=== PATIENT | male | born 1995 | race Caucasian/White ===

== ENCOUNTER 2017-04-29 12:46 | Emergency (ER) | payer OTHER ==
[~2017-04-29] VITALS: Ht 167.6 cm; Wt 64.3 kg
[2017-04-29 13:01] VITALS: TEMP 37.3; Ht 167.6 cm; Wt 64.3 kg
[2017-04-29] MEDS ORDERED: OPTIRAY 320 IV PRN (13:30)
--- NOTE | 2017-04-29 13:36 | EMERGENCY ROOM VISIT NOTE ---
History First contact with patient: 13:04 Chief Complaint: VOMITING Stated Complaint: SORE THROAT,FEELING OF LUMP IN THROAT,VOMITING Nursing Triage Summary: pt reports sore throat X 2 weeks has been on 2 diffirent abx my throat is still sore. pt report I vomit often in the AM History of Present Illness The patient is a 22 year old male who presents to the Emergency Room with complaints of persistent sore throat/difficulty swallowing 3-4 weeks. The patient reports that initially, he noticed that his throat was "scratchy." He was seen by [facility] and prescribed amoxicillin for presumed strep pharyngitis. The patient completed this antibiotic and did have some GI side effects of vomiting, mostly in the morning. He went back to [facility] because his symptoms had persisted and he felt there was increased swelling in the back of the throat. He was prescribed doxycycline and prednisone. He finished these and states that he was still symptomatic. He was seen at a different urgent care clinic 3 days ago and prescribed Augmentin which he has been taking since then. The patient reports he feels swelling in the right side of his throat and has noticed lumps in the back of the throat. He has had persistent vomiting, often in the morning. He also has an increased amount of phlegm in the back of the throat, which is also worse in the morning. He feels it is difficult for him to swallow. He denies any headaches, neck pain/ stiffness, abdominal pain, diarrhea, fevers or weight loss. Review of Systems A complete 10 point review of systems was reviewed with the patient with pertinent positives and negatives as per history of present illness. All else were negative. Past Medical/Surgical History Medical Problems: (1) No significant past medical history Surgical Problems: (1) No significant past surgical history Social History Smoking Status: Current Every Day Smoker Current/Historical Medications Scheduled Amoxicillin & Pot Clavulanate (Augmentin 875-125 mg), 1 TAB PO BID Physical Exam Vital Signs Date Time Temp Pulse Resp B/P (MAP) Pulse Ox O2 Delivery O2 Flow Rate FiO2 04/29/17 14:55 78 18 111/77 99 Room Air 04/29/17 13:01 37.3 73 20 129/85 98 Room Air Physical Exam VITALS: Vitals are noted on the nurse's note and reviewed by myself. Vital signs stable. GENERAL: This is a 22-year-old male, in no acute distress, nondiaphoretic, well- developed well-nourished. SKIN: The skin was without rashes. EARS: External auditory canals clear, tympanic membranes pearly anderson without erythema or effusion bilaterally. EYES: Pupils equal round and reactive to light and accommodation. NOSE: Patent, turbinates without inflammation or discharge. MOUTH: Mucous membranes moist. Tonsils are not enlarged. Pharynx without erythema or exudate. Uvula midline. Airway patent. NECK: Supple without nuchal rigidity. No lymphadenopathy. HEART: Regular rate and rhythm without murmurs gallops or rubs. LUNGS: Clear to auscultation bilaterally without wheezes, rales or rhonchi. No retractions or accessory muscle use. ABDOMEN: Soft, nontender to palpation. NEURO: Patient was alert and oriented to person place and time. Medical Decision & Procedures ER Provider Diagnostic Interpretation: SOFT TISSUE NECK WITH CLINICAL HISTORY: right sided throat pain, difficulty swallowing x wks dysphagia TECHNIQUE: Transaxial acquisition. Multiple axial reformatted images. COMPARISON STUDY: None FINDINGS: Major salivary glands are considered unremarkable. The parotid and submandibular glands are symmetric. Sternocleidomastoid musculature is symmetric. The hypopharyngeal airway is widely patent. The epiglottis is normal. Peritonsillar regions are considered unremarkable. Glottic and subglottic regions are within normal limits. Thyroid is symmetric. No evidence for airway narrowing. Several small cervical nodes bilaterally with no evidence for a dominant lymph node or bulky adenopathy. Pulmonary apices are considered clear. IMPRESSION: Negative study Laboratory Results 04/29/17 13:25 Red Blood Count 5.23, Mean Corpuscular Volume 80.7, Mean Corpuscular Hemoglobin 29.4, Mean Corpuscular Hemoglobin Concent 36.5, Mean Platelet Volume 8.7, Neutrophils (%) (Auto) 73.6, Lymphocytes (%) (Auto) 18.0, Monocytes (%) (Auto) 7.4, Eosinophils (%) (Auto) 0.7, Basophils (%) (Auto) 0.0, Neutrophils # (Auto) 5.19, Lymphocytes # (Auto) 1.27, Monocytes # (Auto) 0.52, Eosinophils # (Auto) 0.05, Basophils # (Auto) 0.00 04/29/17 13:25 Test 04/29/17 13:25 White Blood Count 7.05 K/uL (4.8-10.8) Red Blood Count 5.23 M/uL (4.7-6.1) Hemoglobin 15.4 g/dL (14.0-18.0) Hematocrit 42.2 % (42-52) Mean Corpuscular Volume 80.7 fL (80-100) Mean Corpuscular Hemoglobin 29.4 pg (25-34) Mean Corpuscular Hemoglobin Concent 36.5 g/dl (32-36) Platelet Count 476 K/uL (130-400) Mean Platelet Volume 8.7 fL (7.4-10.4) Neutrophils (%) (Auto) 73.6 % Lymphocytes (%) (Auto) 18.0 % Monocytes (%) (Auto) 7.4 % Eosinophils (%) (Auto) 0.7 % Basophils (%) (Auto) 0.0 % Neutrophils # (Auto) 5.19 K/uL (1.4-6.5) Lymphocytes # (Auto) 1.27 K/uL (1.2-3.4) Monocytes # (Auto) 0.52 K/uL (0.11-0.59) Eosinophils # (Auto) 0.05 K/uL (0-0.5) Basophils # (Auto) 0.00 K/uL (0-0.2) RDW Standard Deviation 37.7 fL (36.4-46.3) RDW Coefficient of Variation 12.8 % (11.5-14.5) Immature Granulocyte % (Auto) 0.3 % Immature Granulocyte # (Auto) 0.02 K/uL (0.00-0.02) Anion Gap 6.0 mmol/L (3-11) Est Creatinine Clear Calc Drug Dose 136.3 ml/min Estimated GFR () 149.0 Estimated GFR (Non- 128.6 BUN/Creatinine Ratio 7.3 (10-20) Calcium Level 9.4 mg/dl (8.5-10.1) Total Bilirubin 0.4 mg/dl (0.2-1) Aspartate Amino Transf (AST/SGOT) 11 U/L (15-37) Alanine Aminotransferase (ALT/SGPT) 19 U/L (12-78) Alkaline Phosphatase 49 U/L (45-117) Total Protein 8.1 gm/dl (6.4-8.2) Albumin 4.4 gm/dl (3.4-5.0) Globulin 3.7 gm/dl (2.5-4.0) Albumin/Globulin Ratio 1.2 (0.9-2) Monoscreen NEG (NEG) ED Course The patient was evaluated as above. Labs were drawn and IV access was obtained. CT of the neck soft tissue was performed and read by radiology as above. Patient was reevaluated and [] []Discharge instructions were reviewed with the patient. The patient verbalized understanding of my assessment and treatment plan and was discharged home in good condition. []Case was discussed with the [] hospitalist, []. They agreed to evaluate the patient for admission. Medical Decision Differential diagnosis includes strep pharyngitis, mononucleosis, retropharyngeal abscess, peritonsillar abscess, mass/malignancy, among others. The patient is a 22-year-old male who presents today complaining of persistent throat pain/difficulty swallowing. Exam is unremarkable and patient describes the pain and swelling to be lower in his throat. He has taken 3 antibiotics without improvement of symptoms. Labs revealed no leukocytosis, anemia or concerning electrolyte abnormality. Monospot was negative. Exam is unremarkable. Due to patient's complaint of persistent swelling/difficulty swallowing, I did choose to perform a CT of the neck to rule out mass or retropharyngeal abscess. This was interpreted by radiology and was negative. Patient was informed of these findings and given information for ENT follow-up. He may have a component of GERD and was instructed to start a medication such as Prilosec. Based on the patient's presentation and work up, I feel the patient is stable for outpatient treatment. The patient was educated to return to the emergency department for any worsening of their current condition or new/concerning symptoms. He will follow up with ENT. Medication Reconcilliation Current Medication List: was personally reviewed by me Blood Pressure Screening Patient's blood pressure: Normal blood pressure Impression Primary Impression: Throat pain Departure Information Dispostion Home / Self-Care Condition GOOD Referrals No Doctor, Assigned (PCP) Sung Gillette MD Patient Instructions [facility] Additional Instructions For pain control, you can use the following [id number] medicines (if >12 yo): - Regular strength (325mg/tab) Tylenol (acetaminophen) 2 tabs every 4-6 hours as needed. Do not exceed 12 tablets in a 24 hour period. Avoid taking more than 4 grams (4000 mg) of Tylenol per day. This includes any other sources of acetaminophen you may take on a regular basis. - Regular strength (200 mg/tab) Advil (ibuprofen) 1-2 tabs every 4-6 hours as needed. Do not exceed a dose of 3200 mg per day. You may consider taking a medication such as Prilosec which is [id number] for acid reflux. Follow-up with ENT if you have persistent symptoms. Return here with difficulty swallowing, difficulty breathing, or any other new/ concerning symptoms.
[2017-04-29 13:57] LABS: EOS % 0.7 %; EOS ABS # 0.05 K/uL (0-0.5); HEMATOCRIT 42.2 % (42-52); HEMOGLOBIN 15.4 g/dL (14.0-18.0); IG# 0.02 K/uL (0.00-0.02); LYMPH ABS # 1.27 K/uL (1.2-3.4); MEAN CELL VOLUME 80.7 fL (80-100); MEAN CORPUSCULAR HEMOGLOBIN 29.4 pg (25-34); MEAN CORPUSCULAR HGB CONC 36.5 g/dl (32-36); MEAN PLATELET VOLUME 8.7 fL (7.4-10.4); MONO % 7.4 %; MONO ABS # 0.52 K/uL (0.11-0.59); NEUT % 73.6 %; NEUT ABS # 5.19 K/uL (1.4-6.5); PLATELET COUNT 476 K/uL (130-400); RED CELL DISTRIBUTION WIDTH CV 12.8 % (11.5-14.5); RED CELL DISTRIBUTION WIDTH SD 37.7 fL (36.4-46.3); WHITE BLOOD COUNT 7.05 K/uL (4.8-10.8)
[2017-04-29 14:14] LABS: ALBUMIN 4.4 gm/dl (3.4-5.0); CALCIUM 9.4 mg/dl (8.5-10.1); CREATININE 0.76 mg/dl (0.60-1.40); POTASSIUM 3.7 mmol/L (3.5-5.1)
[2017-04-29] MEDS ORDERED: AMOX875T PO (14:15)
[2017-04-29 14:17] LABS: TOTAL PROTEIN 8.1 gm/dl (6.4-8.2)
--- NOTE | 2017-04-29 14:45 | DIAGNOSTIC IMAGING REPORT ---
SOFT TISSUE NECK WITH CLINICAL HISTORY: right sided throat pain, difficulty swallowing x wks dysphagia TECHNIQUE: Transaxial acquisition. Multiple axial reformatted images. COMPARISON STUDY: None FINDINGS: Major salivary glands are considered unremarkable. The parotid and submandibular glands are symmetric. Sternocleidomastoid musculature is symmetric. The hypopharyngeal airway is widely patent. The epiglottis is normal. Peritonsillar regions are considered unremarkable. Glottic and subglottic regions are within normal limits. Thyroid is symmetric. No evidence for airway narrowing. Several small cervical nodes bilaterally with no evidence for a dominant lymph node or bulky adenopathy. Pulmonary apices are considered clear. IMPRESSION: Negative study The above report was generated using voice recognition software. It may contain grammatical, syntax or spelling errors. Electronically signed by: Shay Mathew M.D. 04/29/2017 2:44 PM Dictated Date/Time: 04/29/2017 2:41 PM
[2017-04-29 14:55] VITALS: BP 111/77; PULSE 78; O2SAT 99
== END 2017-04-29 15:25 | disposition home or self-care (01) ==
LOC: C.EDB 12:48
DX: R07.0 Pain in throat (principal); R22.0 Localized swelling, mass and lump, head; R11.10 Vomiting, unspecified; F17.200 Nicotine dependence, unspecified, uncomplicated

== ENCOUNTER → 2017-06-11 | Day surgery (SDC) | payer OTHER ==
[2017-06-01 15:29] VITALS: Ht 165.1 cm; Wt 67.7 kg
[~2017-06-11] VITALS: Ht 165.1 cm; Wt 67.7 kg
[~2017-06-11] MED LIST: LIDOCAINE HCL 2% 2 ML VIAL (20MG/ML) ONE; MIDAZOLAM HCL 1 MG/ML 2ML VIAL ONE; MISCCAP80 PO; MULTTAB58 PO; PRLSR20 PO; PROPOFOL IV EMULSION 10 MG/ML 20 ML VIAL IV ONE; SODIUM CHLORIDE 0.9% 500ML 500 ML IV ONE
--- NOTE | 2017-06-11 14:02 | Endo History and Physical ---
History & Physical Date of Service: Jun 11, 2017. Chief Complaint: THROAT TIGHTNESS, NAUSEA, VOMITING Referring Physician: JORGE JOHNSON History of Present Illness 22 yo CM who presents for EGD secondary to nausea, vomiting and throat tightness. Past Surgical History Hx Cardiac Surgery: No Hx Internal Defibrillator: No Hx Pacemaker: No Hx Abdominal Surgery: No Hx of Implantable Prosthesis: No Hx Cancer Surgery: No Hx Thoracic Surgery: No Hx Orthopedic: No Hx Urinary Tract Surgery: No Family History None Social History Smoking Status: Current Every Day Smoker Hx Substance Use: Yes (MARIJUANA OCCASIONALY) Hx Alcohol Use: Yes (RARELY) Allergies Coded Allergies: No Known Allergies (Unverified , 06/11/17) Current Medications Reported Home Medications Medications Dose Route/Sig Max Daily Dose Days Date Category Dose Instructions Probiotic (Probiotic Product) 1 Cap Cap 1 Cap PO DAILY PRN 06/01/17 Reported TAKES "EVERY ONCE IN A WHILE" Multivitamin (Multiple Vitamin) 1 Tab Tab 1 Tab PO DAILY 06/01/17 Reported Prilosec (Omeprazole) 20 Mg Capcr 20 Mg PO BID 06/01/17 Reported Vital Signs Weight (Kilograms): 67.73 Height (Feet): 5 Height (Inches): 5 Date Time Temp Pulse Resp B/P (MAP) Pulse Ox O2 Delivery O2 Flow Rate FiO2 06/11/17 13:15 36.8 89 18 131/74 (93) 95 Room Air Physical Exam General Appearance: WD/WN, no apparent distress Respiratory/Chest: Auscultation: breath sounds normal Cardiovascular: Heart Auscultation: RRR Abdomen: Bowel Sounds: normal Inspection & Palpation: soft, non-distended, no tenderness, guarding & rebound Assessment and Plan Assessment: 22 yo CM who presents for EGD secondary to nausea, vomiting and throat tightness. Plan: Proceed with EGD.
--- NOTE | 2017-06-11 14:24 | Discharge Instructions ---
Endoscopy Patient Instructions Date / Procedure(s) Performed Jun 11, 2017. EGD Allergy Information Coded Allergies: No Known Allergies (Unverified , 06/11/17) Discharge Date / Findings Jun 11, 2017. Duodenal biopsies Gastric antrum biopsies Hiatal hernia Medication Instructions OK to resume all medications today as prescribed Reported Home Medications Medications Dose Route/Sig Max Daily Dose Days Date Category Dose Instructions Probiotic (Probiotic Product) 1 Cap Cap 1 Cap PO DAILY PRN 06/01/17 Reported TAKES "EVERY ONCE IN A WHILE" Multivitamin (Multiple Vitamin) 1 Tab Tab 1 Tab PO DAILY 06/01/17 Reported Prilosec (Omeprazole) 20 Mg Capcr 20 Mg PO BID 06/01/17 Reported Provider Instructions Activity Restrictions - No exercising or heavy lifting for 24 hours. - Do not drink alcohol the day of the procedure. - Do not drive a car or operate machinery until the day after the procedure. - Do not make any important decisions or sign important papers in 24 hours after the procedure. Following Day: - Return to full activity which may include returning to work/school. Diet Start your diet with liquids and light foods (jello, soup, juice, toast). Then eat your usual diet if not nauseated. Treatment For Common After Affects For mild abdominal pain, bloating, or excessive gas: - Rest - Eat lightly - Lie on right side Follow-Up Information Follow-up with JORGE JOHNSON as scheduled Anesthesia Information What You Should Know You have had a procedure that required some medicine to reduce anxiety and discomfort. This treatment is called moderate sedation. After receiving the treatment, you may be sleepy, but you will be able to breathe on your own. The effects of the treatment may last for several hours. Follow these instructions along with Activity/Diet recommendations noted above: * Do NOT do anything where dizziness or clumsiness would be dangerous. * Rest quietly at home today, then you can be up and about tomorrow. * Have a responsible person stay with you the rest of today. * You may have had an I.V. today. If so, you may take the dressing off later today. Recommendations Call your doctor if: * Trouble breathing * Continuous vomiting for more than 24 hours * Temperature above 101 degrees * Severe abdominal pain or bloating * Pain not relieved by pain medicine ordered * There is increased drainage or redness from any incision * A large amount of rectal bleeding greater than 2-3 tablespoons. (If you had a polyp/s removed or have hemorrhoids, a small amount of blood - from the rectum is to be expected.) * You have any unanswered questions or concerns. IN THE EVENT OF A SERIOUS EMERGENCY, GO TO THE NEAREST EMERGENCY ROOM Your discharge instructions were prepared by provider Heber Sousa. Patient Instructions Signature Page Louie Bo Patient (or Guardian) Signature/Date: I have read and understand the instructions given to me by my caregivers. Caregiver/RN/Doctor Signature/Date: The above-named patient and/or guardian has received patient instructions on this date. + Original Patient Signature Page (only) stays with chart. Please make copy for patient.
--- NOTE | 2017-06-11 14:29 | GI REPORT ---
Procedure Date: 06/11/2017 1:31 PM Procedure: Upper GI endoscopy Indications: Epigastric abdominal pain, Nausea with vomiting Medicines: Monitored Anesthesia Care Complications: No immediate complications. Estimated Blood Loss: Estimated blood loss: none. Procedure: Pre-Anesthesia Assessment: - Prior to the procedure, a History and Physical was performed, and patient medications and allergies were reviewed. The patient's tolerance of previous anesthesia was also reviewed. The risks and benefits of the procedure and the sedation options and risks were discussed with the patient. All questions were answered, and informed consent was obtained. Prior Anticoagulants: The patient has taken no previous anticoagulant or antiplatelet agents. ASA Grade Assessment: II - A patient with mild systemic disease. After reviewing the risks and benefits, the patient was deemed in satisfactory condition to undergo the procedure. After obtaining informed consent, the endoscope was passed under direct vision. Throughout the procedure, the patient's blood pressure, pulse, and oxygen saturations were monitored continuously. The scope was introduced through the mouth, and advanced to the second part of duodenum. The upper GI endoscopy was accomplished without difficulty. The patient tolerated the procedure well. Findings: The esophagus was normal. A small hiatal hernia was present. Biopsies were taken with a cold forceps in the gastric antrum for Helicobacter pylori testing. The examined duodenum was normal. Biopsies for histology were taken with a cold forceps for evaluation of celiac disease. Impression: - Normal esophagus. - Small hiatal hernia. - Normal examined duodenum. Biopsied. - Biopsies were taken with a cold forceps for Helicobacter pylori testing. Recommendation: - Resume previous diet. - Continue present medications. - Await pathology results. - Return to primary care physician as previously scheduled. Heber Sousa DO 06/11/2017 2:29:02 PM This report has been signed electronically. Note Initiated On: 06/11/2017 1:31 PM I attest to the content of the Intraoperative Record and orders documented therein, exceptions below
--- NOTE | 2017-06-11 14:40 | Anesthesiology Progress Note ---
Anesthesia Post Op Note Date & Time Jun 11, 2017 at 14:40 Vital Signs Pain Intensity: 0 Vital Signs Past 12 Hours Date Time Temp Pulse Resp B/P (MAP) Pulse Ox O2 Delivery O2 Flow Rate FiO2 06/11/17 14:33 71 18 111/75 (87) 98 Room Air 06/11/17 14:23 75 18 93/51 (65) 98 Room Air 06/11/17 13:15 36.8 89 18 131/74 (93) 95 Room Air Notes Mental Status: alert / awake / arousable, participated in evaluation Pt Amnestic to Procedure: Yes Nausea / Vomiting: adequately controlled Pain: adequately controlled Airway Patency, RR, SpO2: stable & adequate BP & HR: stable & adequate Hydration State: stable & adequate Anesthetic Complications: no major complications apparent
[2017-06-11 14:43] VITALS: BP 125/81; PULSE 72; O2SAT 98
== END | disposition home or self-care (01) ==
LOC: C.GI 12:52
PROVIDERS: ATTEND Internal Medicine
DX: K29.50 Unspecified chronic gastritis without bleeding (principal); K44.9 Diaphragmatic hernia without obstruction or gangrene; K21.9 Gastro-esophageal reflux disease without esophagitis; F12.90 Cannabis use, unspecified, uncomplicated; F17.200 Nicotine dependence, unspecified, uncomplicated; Z79.899 Other long term (current) drug therapy

== ENCOUNTER 2017-06-24 10:58 | Emergency (ER) | payer OTHER ==
[~2017-06-24] VITALS: Ht 165.1 cm; Wt 62.4 kg
[~2017-06-24 10:58] MED LIST changes: -LIDOCAINE HCL 2% 2 ML VIAL (20MG/ML) ONE; -MIDAZOLAM HCL 1 MG/ML 2ML VIAL ONE; -PROPOFOL IV EMULSION 10 MG/ML 20 ML VIAL IV ONE; -SODIUM CHLORIDE 0.9% 500ML 500 ML IV ONE
[2017-06-24 11:01] VITALS: TEMP 36.7; Ht 165.1 cm; Wt 62.4 kg
[2017-06-24] MEDS ORDERED: ONDA4TAB10 SL (11:36)
--- NOTE | 2017-06-24 11:38 | EMERGENCY ROOM VISIT NOTE ---
History Report prepared by Imitaz: David Gabriel Under the Supervision of: Dr. Abdullahi Scott M.D. First contact with patient: 11:09 Chief Complaint: ILLNESS Stated Complaint: SWOLLEN TONSILS,GI ISSUSES, VOMITING&DIARRHEA History of Present Illness The patient is a 22 year old male who presents to the Emergency Room with complaints of a waxing and waning sorethroat that he has been experiencing since the beginning of March. The patient has been worked up for this sorethroat and has had a negative strep test. He states that he would like to be evaluated again, to make sure there was not a false-negative test. He also notes persistent nausea and vomiting. He is currently being evaluated by gastroenterology for these symptoms, and had an endoscopy last week. The patient does smoke marijuana commonly, but notes that he has not smoked for several days. Source of History: patient Onset: Beginning of March Position: throat Quality: other (Sorethroat) Timing: waxes/wanes Associated Symptoms: + nausea, + vomiting Review of Systems See HPI for pertinent positives and negatives. A total of ten systems were reviewed and were otherwise negative. Past Medical & Surgical Medical Problems: (1) No significant past medical history Surgical Problems: (1) No significant past surgical history Family History Diabetes mellitus Heart disease Hypertension Social History Smoking Status: Current Every Day Smoker Marital Status: single Housing Status: lives with roommate Occupation Status: [employer] student Current/Historical Medications Scheduled Omeprazole (Prilosec), 20 MG PO BID Allergies Coded Allergies: No Known Allergies (Unverified , 06/24/17) Physical Exam Vital Signs Date Time Temp Pulse Resp B/P (MAP) Pulse Ox O2 Delivery O2 Flow Rate FiO2 06/24/17 11:50 99 14 120/69 99 06/24/17 11:01 36.7 110 18 121/72 95 Room Air Physical Exam GENERAL: Awake, alert, well-appearing, in no distress HENT: Normocephalic, atraumatic. There is mild injection in the posterior oropharynx, no exudates. Marginally enlarged tonsils. EYES: Normal conjunctiva. Sclera non-icteric. NECK: Supple. No nuchal rigidity. FROM. No JVD. There is mild submandibular lymphadenopathy. Non-tender, and mobile. RESPIRATORY: Clear to auscultation. CARDIAC: Regular rate, normal rhythm. Extremities warm and well perfused. Pulses equal. ABDOMEN: Soft, non-distended. No tenderness to palpation. No rebound or guarding. No masses. RECTAL: Deferred. MUSCULOSKELETAL: Chest examination reveals no tenderness. The back is symmetrical on inspection without obvious abnormality. There is no CVA tenderness to palpation. No joint edema. LOWER EXTREMITIES: Calves are equal size bilaterally and non-tender. No edema. No discoloration. NEURO: Normal sensorium. No sensory or motor deficits noted. SKIN: No rash or jaundice noted. Medical Decision & Procedures ED Course 1115: The patient was evaluated in room A3. A complete history and physical exam was performed. 1131: After significant discussion with the patient at bedside, he expresses understand and agreement with the treatment plan. The patient will be discharged home. Medical Decision I reviewed the patient's past medical history, medications, and the nursing notes as described above. Differential diagnosis: Etiologies such as viral syndrome, tonsillitis, streptococcal pharyngitis, mononucleosis, peritonsillar abscess, retropharyngeal abscess, otitis, pneumonia , influenza, as well as others were entertained. The patient is a 22-year-old gentleman who presents emergency department with interim and sore throat over the past several weeks in the setting of chronic nausea being evaluated by gastroenterology with a recent endoscopy 2 weeks ago per hpi. Of note, the patient comes to ED today to see if he can get checked again for strep concerned that may be there was a false positive on his past testing. He also reports that he was tested for mono and this was negative. Otherwise the patient is well-appearing, no acute distress afebrile stable vital signs. On exam the patient has scant posterior pharyngeal injection but no significant edema or exudates. Marginally enlarged tonsils. Mild submandibular lymphadenopathy that is mobile and nontender. Rapid strep performed was negative. Otherwise given the patient is well-appearing and otherwise healthy no indication for further workup at this time. We discussed the option of adding Pepcid to his current omeprazole however we agreed to defer additional changes per his GI appointment tomorrow. Of note, we did discuss that the patient previously had regular alcohol use and daily cannabis use reports that he has discontinued this after his conversations with his GI specialist. While he notes some improvement after this change his symptoms to still continue. Findings and plan for follow-up reviewed with patient. Patient agreeable and d/c'd per discharge instructions. Medication Reconcilliation Current Medication List: was personally reviewed by me Blood Pressure Screening Patient's blood pressure: Normal blood pressure Impression Primary Impression: Sore throat Additional Impression: Nausea & vomiting Scribe Attestation The scribe's documentation has been prepared under my direction and personally reviewed by me in its entirety. I confirm that the note above accurately reflects all work, treatment, procedures, and medical decision making performed by me. Departure Information Dispostion Home / Self-Care Referrals No Doctor, Assigned (PCP) Patient Instructions ED Nausea Vomiting, [facility], Sore Throat Additional Instructions Please follow up with [facility] in the next 1-3 days and well as with gastroenterology tomorrow as scheduled for re-evaluation. The cause of your symptoms is unclear at this time and may be related to your chronic nausea and vomiting or possible a viral illness. Otherwise, your exam did not show signs of an emergent condition at this time. Acetaminophen or ibuprofen for pain and fevers as needed. Zofran as needed for nausea. Drink plenty of fluids to ensure hydration. Continue to refrain from alcohol and marijuana use. Return to the emergency department for worsening symptoms as described in the accompanying instructions. Problem Qualifiers
[2017-06-24 11:50] VITALS: BP 120/69; PULSE 99; O2SAT 99
== END 2017-06-24 11:52 | disposition home or self-care (01) ==
LOC: C.EDB 11:00 → C.EDA 11:52
DX: J02.9 Acute pharyngitis, unspecified (principal); R11.2 Nausea with vomiting, unspecified; F17.200 Nicotine dependence, unspecified, uncomplicated